=== PATIENT | male | born 1970 | race Caucasian/White ===

== ENCOUNTER 2018-05-11 12:20 | Inpatient (IN) | payer MEDICAID ==
[~2018-05-11] VITALS: Ht 176.5 cm; Wt 72.7 kg
[2018-05-11 13:46] LABS: BASOPHILS 0.3 % (0-2); EOSINOPHILS 0.4 % (0-7); HEMATOCRIT 37.6 % (42.0-54.0); HEMOGLOBIN 13.3 g/dL (13.5-17.5); IMMATURE GRANULOCYTES 0.3 % (0-5); LYMPHOCYTES 15.3 % (15-50); MCH 31.7 pg (26.0-34.0); MCHC 35.4 g/dL (31.0-37.0); MCV 89.5 fL (80.0-100.0); MEAN PLATELET VOLUME 8.9 fL (7.4-10.4); MONOCYTES 8.9 % (2-11); NEUTROPHILS 74.8 % (40-80); PLATELET COUNT 156 10x3/uL (130-400); RDW 14.1 % (11.5-14.5); WBC 11.4 10x3/uL (4.8-10.8)
[2018-05-11 14:04] LABS: ALBUMIN 3.4 g/dL (3.4-5.0); ALKALINE PHOSPHATASE 52 U/L (46-116); ALT (SGPT) 116 U/L (10-68); BILIRUBIN - TOTAL 0.46 mg/dL (0.2-1.3); CALC OSMOLALITY 269 mosm/kg (275-300); CALCIUM 9.3 mg/dL (8.5-10.1); CARBON DIOXIDE 27.6 mmol/L (21.0-32.0); CHLORIDE - SERUM 100 mmol/L (98-107); GLUCOSE 93 mg/dL (74-106); POTASSIUM - SERUM 3.7 mmol/L (3.5-5.1); PROTEIN - SERUM 7.5 g/dL (6.4-8.2); SODIUM 136 mmol/L (136-145); UREA NITROGEN 8 mg/dL (7-18); eGFR NON AFRICAN AMERICAN 84 mL/min (90-120)
[2018-05-11 14:44] LABS: APPEARANCE CLEAR (CLEAR); BILIRUBIN NEGATIVE (NEGATIVE); COLOR YELLOW (YELLOW); GLUCOSE NEGATIVE (NEGATIVE); KETONE NEGATIVE (NEGATIVE); NITRITE NEGATIVE (NEGATIVE); PROTEIN NEGATIVE (NEGATIVE); SPECIFIC GRAVITY 1.005 (1.005-1.020); UROBILINOGEN NORMAL (NORMAL)
[2018-05-11 17:45] VITALS: BP 115/69; BMI 23.3
[2018-05-11 18:32] VITALS: Ht 176.5 cm; Wt 72.7 kg
--- NOTE | 2018-05-11 19:00 | NUR ---
PATIENT LEFT FOR SURGERY PER BED. IV PATENT RT AC OF NS AT 125CC'S/HR.
[2018-05-11 20:39] VITALS: BP 111/66
--- NOTE | 2018-05-11 20:39 | NUR ---
PATIENT RETURNS TO ROOM FROM PACU POST OP SCROTAL ABSCESS I&D. DRSG C/D/I. PACKING NOTED WITH 4X4'S AND DISPOSIBLE UNDERWEAR ON. VS BEING MONITORED. PATIENT GIVEN A SANDWICH TRAY 80% CONSUMED PT'S AT BEDSIDE.
--- NOTE | 2018-05-11 22:00 | NUR ---
RESTING QUIETLY DENIES NEEDS.
--- NOTE | 2018-05-11 23:30 | NUR ---
VOIDED IN URINAL.
[2018-05-12] VITALS: BP 100/61
--- NOTE | 2018-05-12 00:32 | NUR ---
C/O PAIN IN HIS INCISIONAL AREA. MORPHINE 4MG IVPS GIVEN FOR PAIN CONTROL.
--- NOTE | 2018-05-12 03:00 | NUR ---
EYES CLOSED RESPIRAIONS WITH EASE AND UNLABORED.
[2018-05-12 05:38] VITALS: BP 121/61
[2018-05-12 06:24] LABS: BASOPHILS 0.2 % (0-2); EOSINOPHILS 0.8 % (0-7); HEMATOCRIT 35.6 % (42.0-54.0); HEMOGLOBIN 12.4 g/dL (13.5-17.5); IMMATURE GRANULOCYTES 0.2 % (0-5); LYMPHOCYTES 18.4 % (15-50); MCH 31.2 pg (26.0-34.0); MCHC 34.8 g/dL (31.0-37.0); MCV 89.7 fL (80.0-100.0); MEAN PLATELET VOLUME 9.7 fL (7.4-10.4); MONOCYTES 8.3 % (2-11); NEUTROPHILS 72.1 % (40-80); PLATELET COUNT 170 10x3/uL (130-400); RBC 3.97 10x6/uL (4.20-6.10); RDW 14.1 % (11.5-14.5); WBC 9.7 10x3/uL (4.8-10.8)
--- NOTE | 2018-05-12 06:35 | NUR ---
RESTING QUIETLY DENIES NEEDS. SR UP X2 CALL LIGHT WITHIN REACH.
[2018-05-12 06:45] LABS: ALKALINE PHOSPHATASE 50 U/L (46-116); ALT (SGPT) 88 U/L (10-68); BILIRUBIN - TOTAL 0.56 mg/dL (0.2-1.3); CALC OSMOLALITY 271 mosm/kg (275-300); CALCIUM 8.5 mg/dL (8.5-10.1); CARBON DIOXIDE 25.2 mmol/L (21.0-32.0); CHLORIDE - SERUM 102 mmol/L (98-107); GLUCOSE 103 mg/dL (74-106); POTASSIUM - SERUM 4.2 mmol/L (3.5-5.1); PROTEIN - SERUM 6.9 g/dL (6.4-8.2); SODIUM 137 mmol/L (136-145); UREA NITROGEN 8 mg/dL (7-18); eGFR NON AFRICAN AMERICAN 84 mL/min (90-120)
[2018-05-12 08:45] VITALS: BP 142/71
--- NOTE | 2018-05-12 08:46 | OP ---
PATIENT NAME: EDGARDO ESQUIVEL MEDICAL RECORD: [id number] :[birth year] LOCATION:D.MS [id number] ADMISSION DATE:05/11/18 SURGEON: SAVANNAH FUNES MD DATE OF OPERATION: 05/11/2018 SURGEON: Savannah Funes MD ANESTHESIA: General anesthesia by Marlo Arshad CRNA. DIAGNOSIS: Left scrotal abscess. PROCEDURE: Incision and drainage of scrotal abscess. FINDINGS: A 1 cm left medial thigh calcified scar. A 4 cm long x 2 cm wide left lateral scrotal abscess with copious foul-smelling pus. SPECIMENS: Wound culture swabs, aerobic and anaerobic. ESTIMATED BLOOD LOSS: None. CLINICAL HISTORY: This is a 48-year-old male who does not have diabetes mellitus. He is not on chemotherapy. He is not immunocompromised in any way. He shaves his scrotal hair for cosmetic reasons. A few days ago, he developed pain in the left hemiscrotum and has gotten increasingly more intense. Finally, he could not tolerate the pain and came to the Emergency Room today. A large scrotal abscess was found. The skin overlying the abscess is not necrotic. He does not have any fevers or other signs of Nelly's gangrene. He has been started on IV antibiotics in the Emergency Room. No further antibiotics were given to him. He will be getting an incision and drainage of the abscess tonight. DESCRIPTION OF PROCEDURE: The patient was given induction of general anesthesia in the supine position. His left leg was then frog legged out. The right leg was maintained in a straight position. When we abducted the left leg, we noticed a plaque in the medial thigh, which looked like an early abscess forming in the skin of the medial thigh. We prepped the scrotum, the penis, the peritoneum, and the left thigh. A small incision was then made about 1 cm long in the left thigh. No pus was seen. Instead, there seems to be an old calcified scar in this area. This incision was closed with 2 simple interrupted 4-0 Monocryl sutures. A Band-Aid was then placed over the incision. The blue towels were then placed over this medial thigh lesion to protect it from pus contamination. We then made a 2 cm long incision in the scrotal abscess. Immediately large quantities of foul-smelling pus was released. Culture swabs were obtained from the pus. The abscess cavity was irrigated out using normal saline. Half-inch iodoform packing was then placed into the abscess cavity. Fluffs and mesh panties were then placed on the patient. The iodoform packing will be changed on a daily basis. TRANSINT:[id number] Voice Confirmation ID: [id number] DOCUMENT ID: [id number] OPERATIVE REPORT [id number] EDGARDO ESQUIVEL, SAVANNAH Pierce MD at 0846 CC: [id number] DICTATION DATE: 05/11/182000 RESTAURANT SUPERVISOR: 05/11/18 2206 ADM IN [place] [id number] [place] [id number]
--- NOTE | 2018-05-12 11:06 | NUR ---
AFTER ASSESSING PT, PT HAS ANOTHER BOIL/ABSCESS ON BOTTOM OF RT SIDE OF SCROTUM WELL ONE ON UPPER BACK ON RT SIDE, REPACKED PT DRESSING, PT IS IN EXCRUCIATING PAIN AND WAS ADMINISTERED PRN PAIN MEDS AT 9. ADVISED PT I CAN GIVE MORE AT 1. SIGNIFICANTOTHER AT BEDSIDE, CONTINUE WITH PLAN OF CARE
--- NOTE | 2018-05-12 11:51 | MORECARE ---
CASE MANAGEMENT DISCHARGE SUMMARY PATIENT: EDGARDO ESQUIVEL UNIT: [id number] ADM DATE: 05/11/18 AGE: 48 : [birth year] SEX: M ROOM/BED: D.2225 AUTHOR: JESSICA DENNIS PHYSICIAN: REFERRING PHYSICIAN: JULISSA DIXON MD DATE OF SERVICE: 05/12/18 Discharge Plan Patient Name: EDGARDO ESQUIVEL [facility] [facility] 1970 Planned Disposition: Home Anticipated Discharge Date: Discharge Date: Expected LOS: Initial Reviewer: [email or web address] Initial Review Date: 05/12/2018 Generated: 05/12/18 12:50 pm DCPIA - Discharge Planning Initial Assessment Updated by [email or web address]: Jessika Frank on 05/12/18 11:49 am * Is the patient Alert and Oriented? Yes * How many steps to enter\exit or inside your home? 2-3/0 * PCP None * Pharmacy [facility] * Preadmission Environment Home with Family * ADLs Independent * Equipment None * List name and contact numbers for known caregivers / representatives who currently or will assist patient after discharge: Salome Bharti arias? - [phone] * Verbal permission to speak to the caregivers and representatives has been obtained from the patient. Yes * Community resources currently utilized None * Additional services required to return to the preadmission environment? No * Can the patient safely return to the preadmission environment? Yes * Has this patient been hospitalized within the prior 30 days at any hospital? No Patient Name: EDGARDO ESQUIVEL Page 92265 at 1151 All edits/amendments must be made on the electronic document DICTATION DATE: 05/12/18 1150 GROUP DIRECTOR EXPERIENCE: DANIEL 05/12/18 1150 RPT#: [id number] DC DATE: STATUS: ADM IN [facility] [address] [place] [address] END OF REPORT
--- NOTE | 2018-05-12 11:58 | MORECARE ---
CASE MANAGEMENT DISCHARGE SUMMARY PATIENT: EDGARDO ESQUIVEL UNIT: [id number] ADM DATE: 05/11/18 AGE: 48 : [birth year] SEX: M ROOM/BED: D.2225 AUTHOR: SONNY,DOC PHYSICIAN: REFERRING PHYSICIAN: JULISSA DIXON MD DATE OF SERVICE: 05/12/18 Discharge Plan Patient Name: EDGARDO ESQUIVEL Facility: [facility]:[place] : 1970 Planned Disposition: Home Anticipated Discharge Date: Discharge Date: Expected LOS: Initial Reviewer: [email or web address] Initial Review Date: 05/12/2018 Generated: 05/12/18 12:58 pm Comments DCP- Discharge Planning Updated by [email or web address]: Jessika Frank on 05/12/18 10:[address] Patient Name: EDGARDO ESQUIVEL Admission Status: ER Accout number: [id number] Admission Date: 05-11-2018 : 1970 Admission Diagnosis: Attending: JULISSA DIXON Current LOS: 1 Anticipated DC Date: Planned Disposition: Home Primary Insurance: MEDICAID [place] PENDING Discharge Planning Comments: CM met with patient to discuss discharge planning, he is alone in the room. States he lives with his son and fianc?e. States he is independent with all ADL's and IADL's. He does not have any DME and states he does not need anything. He does not have any outside community resources assisting in the home. Denies needs at this time. If he needs dressing changes or wound care he may need to have fianc?e assist if able since he is currently uninsured (Medicaid pending). CM will continue to follow and assist with discharge planning/needs. Tailor Men'S Ready To Wear: Jessika Frank DCPIA - Discharge Planning Initial Assessment Updated by [email or web address]: Jessika Frank on 05/12/18 11:49 am * Is the patient Alert and Oriented? Yes * How many steps to enter\exit or inside your home? 2-3/0 * PCP None * Pharmacy [facility] [address] * Preadmission Environment Home with Family * ADLs Independent * Equipment None * List name and contact numbers for known caregivers / representatives who currently or will assist patient after discharge: Salome - fianc? - [phone] * Verbal permission to speak to the caregivers and representatives has been obtained from the patient. Yes * Community resources currently utilized None * Additional services required to return to the preadmission environment? No * Can the patient safely return to the preadmission environment? Yes * Has this patient been hospitalized within the prior 30 days at any hospital? No Last DP export: 05/12/18 10:50 am Patient Name: EDGARDO ESQUIVEL Page 65681 at 1158 All edits/amendments must be made on the electronic document DICTATION DATE: 05/12/18 1158 ASSISTANT STRENGTH COACH: DANIEL 05/12/18 1158 RPT#: [id number] DC DATE: STATUS: ADM IN [facility] [address] [place] [address] END OF REPORT
[2018-05-12 12:45] VITALS: BP 117/70
--- NOTE | 2018-05-12 15:52 | NUR ---
LYING IN BED,WITHOUT DISTRESS.
[2018-05-12 16:37] VITALS: BP 137/83
[2018-05-12 20:00] VITALS: BP 101/57
--- NOTE | 2018-05-12 20:00 | NUR ---
ASSESSMENT PER FLOWSHEET. DRESSING TO SCROTAL AREA C/D/I. IV SALINE LOCKED TO RT AC. UP AD JONI IN HALLS WITH HIS . BOIL NOTED TO LEFT SCAPULA. AND UNDER RT SCROTUM.
--- NOTE | 2018-05-12 21:32 | NUR ---
C/O PAIN INCISIONAL AREA. NORCO 5 TAB ONE PO GIVEN FOR PAIN CONTROL.
[2018-05-13] VITALS: BP 113/52
--- NOTE | 2018-05-13 | NUR ---
RESTING IN BED SR UP X2 CALL LIGHT WITHIN REACH VOIDS WELL IN URINAL.
--- NOTE | 2018-05-13 02:00 | NUR ---
EYES CLOSED RESPIRATIONS WITH EASE AND UNLABORED.
[2018-05-13 04:00] VITALS: BP 114/73
--- NOTE | 2018-05-13 04:20 | NUR ---
RESTING QUIETLY DENIES NEEDS.
--- NOTE | 2018-05-13 08:20 | NUR ---
PT AOX4 RESP EVEN AND NONLABORED PT DENIES NEEDS AT THIS TIME IV TO RIGHT AC PATENT AND INTACT AT THIS TIME SRX2 BED AT LOWEST SETTING CALL LIGHT WITHIN REACH WILL CONTINUE TO MONITOR
[2018-05-13 08:45] VITALS: BP 112/61
--- NOTE | 2018-05-13 12:04 | MORECARE ---
CASE MANAGEMENT DISCHARGE SUMMARY PATIENT: EDGARDO ESQUIVEL UNIT: [id number] ADM DATE: 05/11/18 AGE: 48 : [birth year] SEX: M ROOM/BED: D.2225 AUTHOR: SONNY,DOC PHYSICIAN: REFERRING PHYSICIAN: JULISSA DIXON MD DATE OF SERVICE: 05/13/18 Discharge Plan Patient Name: EDGARDO ESQUIVEL Facility: [facility]:[place] : 1970 Planned Disposition: Home Anticipated Discharge Date: Discharge Date: Expected LOS: Initial Reviewer: [email or web address] Initial Review Date: 05/12/2018 Generated: 05/13/18 1:04 pm Comments DCP- Discharge Planning Updated by [email or web address]: Jessika Frank on 05/13/18 11:[address] Spoke with Roxy at Dr. Kirby's office,. She states she is not in the office every day to schedule daily dressing changes. States ok for family to pack. I went to the patient's room and his fianc? is in the room. I gave them option of walk in clinic or hospital daily for wound packing. Jorge Luis states that if someone would show her, she could do the daily packing prior to going to work and patient agrees. I will talk to his nurse Dasha about instructing the fianc?e on wound packing. Anticipate discharge home today. DCP- Discharge Planning Updated by [email or web address]: Jessika Frank on 05/12/18 10:[address] Patient Name: EDGARDO ESQUIVEL Admission Status: ER Accout number: [id number] Admission Date: 05-11-2018 : 1970 Admission Diagnosis: Attending: JULISSA DIXON Current LOS: 1 Anticipated DC Date: Planned Disposition: Home Primary Insurance: MEDICAID [place] PENDING Discharge Planning Comments: CM met with patient to discuss discharge planning, he is alone in the room. States he lives with his son and fianc?e. States he is independent with all ADL's and IADL's. He does not have any DME and states he does not need anything. He does not have any outside community resources assisting in the home. Denies needs at this time. If he needs dressing changes or wound care he may need to have fianc?e assist if able since he is currently uninsured (Medicaid pending). CM will continue to follow and assist with discharge planning/needs. Field Service Rep: Jessika Frank DCPIA - Discharge Planning Initial Assessment Updated by [email or web address]: Jessika Monika on 05/12/18 11:49 am * Is the patient Alert and Oriented? Yes * How many steps to enter\exit or inside your home? 2-3/0 * PCP None * Pharmacy [facility] [address] * Preadmission Environment Home with Family * ADLs Independent * Equipment None * List name and contact numbers for known caregivers / representatives who currently or will assist patient after discharge: Salome - fidiego? - [phone] * Verbal permission to speak to the caregivers and representatives has been obtained from the patient. Yes * Community resources currently utilized None * Additional services required to return to the preadmission environment? No * Can the patient safely return to the preadmission environment? Yes * Has this patient been hospitalized within the prior 30 days at any hospital? No Last DP export: 05/12/18 10:58 am Patient Name: EDGARDO ESQUIVEL Page 25788 at 1204 All edits/amendments must be made on the electronic document DICTATION DATE: 05/13/181203 CRANE MAN: DANIEL 05/13/181203 RPT#: [id number] DC DATE: STATUS: ADM IN [facility] [address] [place] [address] END OF REPORT
[2018-05-13 12:45] VITALS: BP 113/56
[2018-05-13] MEDS ORDERED: NORCO 7.5/325 T1 TA1 PO (15:01)
[2018-05-13] MEDS ORDERED: CLEOCIN HCL300 MG PO (15:01)
[2018-05-13] MEDS ORDERED: MIRALAX17 GM PO (15:01)
[2018-05-13] MEDS ORDERED: BACTROBAN NASAL1 GM NASAL (15:11)
--- NOTE | 2018-05-13 15:26 | MORECARE ---
CASE MANAGEMENT DISCHARGE SUMMARY PATIENT: EDGARDO ESQUIVEL UNIT: [id number] ADM DATE: 05/11/18 AGE: 48 : [birth year] SEX: M ROOM/BED: D.2225 AUTHOR: SONNYDOC PHYSICIAN: REFERRING PHYSICIAN: JULISSA DIXON MD DATE OF SERVICE: 05/13/18 Discharge Plan Patient Name: EDGARDO ESQUIVEL Facility: [facility]:[place] : 1970 Planned Disposition: Home Anticipated Discharge Date: Discharge Date: Expected LOS: Initial Reviewer: [email or web address] Initial Review Date: 05/12/2018 Generated: 05/13/18 4:26 pm Comments DCP- Discharge Planning Updated by [email or web address]: Jessika Frank on 05/13/18 2:[address] Discharge orders received. Martha is going to pack his wound prior to shower every morning. No other needs. Discharging to home. DCP- Discharge Planning Updated by [email or web address]: Jessika Monika on 05/13/18 11:[address] Spoke with Roxy at Dr. Kirby's office,. She states she is not in the office every day to schedule daily dressing changes. States ok for family to pack. I went to the patient's room and his fianc? is in the room. I gave them option of walk in clinic or hospital daily for wound packing. Jorge Luis states that if someone would show her, she could do the daily packing prior to going to work and patient agrees. I will talk to his nurse Dasha about instructing the fianc?e on wound packing. Anticipate discharge home today. DCP- Discharge Planning Updated by [email or web address]: Jessika Farnk on 05/12/18 10:[address] Patient Name: EDGARDO ESQUIVEL Admission Status: ER Accout number: [id number] Admission Date: 05-11-2018 : 1970 Admission Diagnosis: Attending: JULISSA DIXON Current LOS: 1 Anticipated DC Date: Planned Disposition: Home Primary Insurance: MEDICAID [place] PENDING Discharge Planning Comments: CM met with patient to discuss discharge planning, he is alone in the room. States he lives with his son and fianc?e. States he is independent with all ADL's and IADL's. He does not have any DME and states he does not need anything. He does not have any outside community resources assisting in the home. Denies needs at this time. If he needs dressing changes or wound care he may need to have fianc?e assist if able since he is currently uninsured (Medicaid pending). CM will continue to follow and assist with discharge planning/needs. Terminal Supervisor: Jessika Frank DCPIA - Discharge Planning Initial Assessment Updated by [email or web address]: Jessika Frank on 05/12/18 11:49 am * Is the patient Alert and Oriented? Yes * How many steps to enter\exit or inside your home? 2-3/0 * PCP None * Pharmacy [facility] [address] * Preadmission Environment Home with Family * ADLs Independent * Equipment None * List name and contact numbers for known caregivers / representatives who currently or will assist patient after discharge: Salome - juana? - [phone] * Verbal permission to speak to the caregivers and representatives has been obtained from the patient. Yes * Community resources currently utilized None * Additional services required to return to the preadmission environment? No * Can the patient safely return to the preadmission environment? Yes * Has this patient been hospitalized within the prior 30 days at any hospital? No Last DP export: 05/13/18 11:04 am Patient Name: EDGARDO ESQUIVEL Page 26609 at 1526 All edits/amendments must be made on the electronic document DICTATION DATE: 05/13/181524 ALGEBRAIST: DANIEL 05/13/181524 RPT#: [id number] DC DATE: STATUS: ADM IN [facility] [address] [place] [address] END OF REPORT
--- NOTE | 2018-05-13 16:54 | NUR ---
IV DISCONTINUED WITH CATHETER INTACT AT THIS TIME PT HANDED ONE PAIN SCRIPT FOR NORCO 7.5 AT THIS TIME PT TAKEN VIA WHEELCHAIR VIA PRIVATE VEHICLE AT THIS TIME
--- NOTE | 2018-05-17 07:15 | MORECARE ---
CASE MANAGEMENT DISCHARGE SUMMARY PATIENT: EDGARDO ESQUIVEL UNIT: [id number] ADM DATE: 05/11/18 AGE: 48 : 68 SEX: M ROOM/BED: D.2225 AUTHOR: SONNYDOC PHYSICIAN: REFERRING PHYSICIAN: JULISSA DIXON MD DATE OF SERVICE: 05/17/18 Discharge Plan Patient Name: EDGARDO ESQUIVEL Facility: [facility]:[place] : 1970 Planned Disposition: Home Anticipated Discharge Date: Discharge Date: 05/13/2018 Expected LOS: 0 Initial Reviewer: [email or web address] Initial Review Date: 05/12/2018 Generated: 05/17/18 8:15 am Comments DCP- Discharge Planning Updated by [email or web address]: Jessika Frank on 05/13/18 2:[address] Discharge orders received. Martha is going to pack his wound prior to shower every morning. No other needs. Discharging to home. DCP- Discharge Planning Updated by [email or web address]: Jessika Frank on 05/13/18 11:[address] Spoke with Roxy at Dr. Kirby's office,. She states she is not in the office every day to schedule daily dressing changes. States ok for family to pack. I went to the patient's room and his fianc? is in the room. I gave them option of walk in clinic or hospital daily for wound packing. Jorge Luis states that if someone would show her, she could do the daily packing prior to going to work and patient agrees. I will talk to his nurse Dasha about instructing the fianc?e on wound packing. Anticipate discharge home today. DCP- Discharge Planning Updated by [email or web address]: Jessika Frank on 05/12/18 10:[address] Patient Name: EDGARDO ESQUIVEL Admission Status: ER Accout number: [id number] Admission Date: 05-11-2018 : 1970 Admission Diagnosis: Attending: JULISSA DIXON Current LOS: 1 Anticipated DC Date: Planned Disposition: Home Primary Insurance: MEDICAID [place] PENDING Discharge Planning Comments: CM met with patient to discuss discharge planning, he is alone in the room. States he lives with his son and fianc?e. States he is independent with all ADL's and IADL's. He does not have any DME and states he does not need anything. He does not have any outside community resources assisting in the home. Denies needs at this time. If he needs dressing changes or wound care he may need to have fianc?e assist if able since he is currently uninsured (Medicaid pending). CM will continue to follow and assist with discharge planning/needs. Kennel Assistant: Jessika Frank DCPIA - Discharge Planning Initial Assessment Updated by [email or web address]: Jessika Frank on 05/12/18 11:49 am * Is the patient Alert and Oriented? Yes * How many steps to enter\exit or inside your home? 2-3/0 * PCP None * Pharmacy [facility] on [facility] * Preadmission Environment Home with Family * ADLs Independent * Equipment None * List name and contact numbers for known caregivers / representatives who currently or will assist patient after discharge: Salome - juana? - [phone] * Verbal permission to speak to the caregivers and representatives has been obtained from the patient. Yes * Community resources currently utilized None * Additional services required to return to the preadmission environment? No * Can the patient safely return to the preadmission environment? Yes * Has this patient been hospitalized within the prior 30 days at any hospital? No Last DP export: 05/13/18 2:26 pm Patient Name: EDGARDO ESQUIVEL Page [id number] at 0715 All edits/amendments must be made on the electronic document DICTATION DATE: 05/17/18714 HEARING STENOGRAPHER: DANIEL 05/17/18714 RPT#: [id number] DC DATE:05/13/18 STATUS: DIS IN [facility] [address] [facility] [place] [address] END OF REPORT
== END 2018-05-13 16:56 | disposition home or self-care (01) | DRG 728 ==
LOC: D.ER 12:20 → D.EDHOLD 16:15 → D.MS 16:15
PROVIDERS: Family Medicine; Urology; ADMIT Internal Medicine Nephrology
PROC: 0V95XZZ Drainage of Scrotum, External Approach (ICD-10-PCS; principal; 2018-05-11 19:00)
DX: N49.2 Inflammatory disorders of scrotum (principal); K21.9 Gastro-esophageal reflux disease without esophagitis; Z87.891 Personal history of nicotine dependence

== ENCOUNTER 2018-12-25 08:56 | Emergency (ER) | payer OTHER ==
[~2018-12-25] VITALS: Ht 176.5 cm; Wt 74.8 kg
[~2018-12-25 08:56] MED LIST: BACTROBAN NASAL1 GM NASAL; CLEOCIN HCL300 MG PO; MIRALAX17 GM PO; NORCO 7.5/325 T1 TA1 PO
[2018-12-25 08:57] VITALS: Ht 176.5 cm; Wt 74.8 kg
[2018-12-25 09:28] LABS: ALBUMIN 3.3 g/dL (3.4-5.0); ALKALINE PHOSPHATASE 38 U/L (46-116); ALT (SGPT) 53 U/L (10-68); BILIRUBIN - TOTAL 0.38 mg/dL (0.2-1.3); CALCIUM 8.4 mg/dL (8.5-10.1); CARBON DIOXIDE 23.1 mmol/L (21.0-32.0); CHLORIDE - SERUM 107 mmol/L (98-107); CREATININE - SERUM 1.2 mg/dL (0.6-1.3); POTASSIUM - SERUM 3.6 mmol/L (3.5-5.1); PROTEIN - SERUM 6.1 g/dL (6.4-8.2); SODIUM 141 mmol/L (136-145); UREA NITROGEN 13 mg/dL (7-18); eGFR NON AFRICAN AMERICAN 68 mL/min (90-120)
[2018-12-25 09:32] LABS: AMYLASE - SERUM 53 U/L (25-115); LIPASE 71 U/L (73-393)
[2018-12-25 09:34] LABS: CALC OSMOLALITY 284 mosm/kg (275-300); GLUCOSE 162 mg/dL (74-106); TROPONIN-I < 0.017 ng/mL (0.000-0.060)
[2018-12-25 09:41] LABS: UDS - AMPHET NEGATIVE QUAL (NEGATIVE); UDS - BARB NEGATIVE QUAL (NEGATIVE); UDS - BENZO NEGATIVE QUAL (NEGATIVE); UDS - COCAINE NEGATIVE QUAL (NEGATIVE); UDS - OPIATE NEGATIVE QUAL (NEGATIVE); UDS - PCP NEGATIVE QUAL (NEGATIVE); UDS - THC POSITIVE QUAL (NEGATIVE)
[2018-12-25 09:43] LABS: APPEARANCE CLEAR (CLEAR); COLOR YELLOW (YELLOW); GLUCOSE 50 mg/dL (NEGATIVE); NITRITE NEGATIVE (NEGATIVE); PROTEIN NEGATIVE (NEGATIVE); SPECIFIC GRAVITY 1.005 (1.005-1.020)
[2018-12-25 09:44] LABS: BILIRUBIN NEGATIVE (NEGATIVE); KETONE SMALL mg/dL (NEGATIVE); UROBILINOGEN NORMAL (NORMAL)
[2018-12-25 09:49] LABS: BASOPHILS 0.1 % (0-2); EOSINOPHILS 0.3 % (0-7); HEMATOCRIT 38.3 % (42.0-54.0); HEMOGLOBIN 13.8 g/dL (13.5-17.5); IMMATURE GRANULOCYTES 0.1 % (0-5); LYMPHOCYTES 22.5 % (15-50); MCH 31.2 pg (26.0-34.0); MCV 86.7 fL (80.0-100.0); MEAN PLATELET VOLUME 9.7 fL (7.4-10.4); MONOCYTES 6.7 % (2-11); NEUTROPHILS 70.3 % (40-80); PLATELET COUNT 142 10x3/uL (130-400); RBC 4.42 10x6/uL (4.20-6.10); WBC 7.5 10x3/uL (4.8-10.8)
[2018-12-25] MEDS ORDERED: PROTONIX40 MG PO (11:02)
[2018-12-25] MEDS ORDERED: CARAFATE1 G PO (11:02)
[2018-12-25 11:16] VITALS: BP 123/60
== END 2018-12-25 11:17 | disposition home or self-care (01) ==
LOC: D.ER 08:56
PROVIDERS: Family Medicine
DX: K29.70 Gastritis, unspecified, without bleeding (principal)

== ENCOUNTER 2018-12-28 22:20 | Emergency (ER) | payer OTHER ==
[~2018-12-28] VITALS: Ht 176.5 cm; Wt 72.7 kg
[~2018-12-28 22:20] MED LIST changes: +CARAFATE1 G PO; +PROTONIX40 MG PO
[2018-12-28 22:27] VITALS: Ht 176.5 cm; Wt 72.7 kg
[2018-12-28] MEDS ORDERED: ULTRAM50 MG PO (22:28)
[2018-12-28 22:50] LABS: BASOPHILS 0.2 % (0-2); EOSINOPHILS 0.2 % (0-7); HEMOGLOBIN 14.7 g/dL (13.5-17.5); IMMATURE GRANULOCYTES 0.1 % (0-5); LYMPHOCYTES 20.5 % (15-50); MCH 31.6 pg (26.0-34.0); MCHC 36.8 g/dL (31.0-37.0); MEAN PLATELET VOLUME 9.4 fL (7.4-10.4); MONOCYTES 6.5 % (2-11); NEUTROPHILS 72.5 % (40-80); PLATELET COUNT 153 10x3/uL (130-400); RBC 4.65 10x6/uL (4.20-6.10); RDW 13.6 % (11.5-14.5); WBC 9.1 10x3/uL (4.8-10.8)
[2018-12-28 23:03] LABS: ALBUMIN 3.4 g/dL (3.4-5.0); ALKALINE PHOSPHATASE 41 U/L (46-116); ALT (SGPT) 52 U/L (10-68); BILIRUBIN - TOTAL 0.51 mg/dL (0.2-1.3); CALC OSMOLALITY 275 mosm/kg (275-300); CALCIUM 8.3 mg/dL (8.5-10.1); CARBON DIOXIDE 23.6 mmol/L (21.0-32.0); CHLORIDE - SERUM 102 mmol/L (98-107); CREATININE - SERUM 1.4 mg/dL (0.6-1.3); GLUCOSE 136 mg/dL (74-106); POTASSIUM - SERUM 3.1 mmol/L (3.5-5.1); PROTEIN - SERUM 6.3 g/dL (6.4-8.2); SODIUM 137 mmol/L (136-145); UREA NITROGEN 13 mg/dL (7-18); eGFR NON AFRICAN AMERICAN 57 mL/min (90-120)
[2018-12-28 23:06] LABS: AMYLASE - SERUM 55 U/L (25-115); LIPASE 62 U/L (73-393); TROPONIN-I < 0.017 ng/mL (0.000-0.060)
[2018-12-29] MEDS ORDERED: CARAFATE1 G PO (00:10)
[2018-12-29] MEDS ORDERED: PHENERGAN25 M1 PO (00:10)
[2018-12-29] MEDS ORDERED: BENTYL 20 MG TA20 MG PO (00:10)
[2018-12-29 00:14] LABS: APPEARANCE CLEAR (CLEAR); BILIRUBIN NEGATIVE (NEGATIVE); COLOR YELLOW (YELLOW); GLUCOSE NEGATIVE (NEGATIVE); KETONE MODERATE mg/dL (NEGATIVE); NITRITE NEGATIVE (NEGATIVE); PROTEIN NEGATIVE (NEGATIVE); UROBILINOGEN NORMAL (NORMAL)
[2018-12-29 00:30] VITALS: BP 155/93
== END 2018-12-29 00:30 | disposition home or self-care (01) ==
LOC: D.ER 22:20
PROVIDERS: Emergency Medicine
DX: K29.70 Gastritis, unspecified, without bleeding (principal); R11.2 Nausea with vomiting, unspecified

== ENCOUNTER 2019-05-04 08:23 | Observation (INO) | payer OTHER ==
[~2019-05-04] VITALS: Ht 176.5 cm; Wt 77.3 kg
[~2019-05-04 08:23] MED LIST changes: +BENTYL 20 MG TA20 MG PO; +PHENERGAN25 M1 PO; +ULTRAM50 MG PO
[2019-05-04] MEDS ORDERED: ACID REFLUX MED (08:34)
[2019-05-04 08:59] LABS: BASOPHILS 0.3 % (0-2); EOSINOPHILS 0.3 % (0-7); HEMATOCRIT 40.6 % (42.0-54.0); HEMOGLOBIN 14.4 g/dL (13.5-17.5); IMMATURE GRANULOCYTES 0.3 % (0-5); MCH 31.2 pg (26.0-34.0); MCHC 35.5 g/dL (31.0-37.0); MCV 87.9 fL (80.0-100.0); MEAN PLATELET VOLUME 9.9 fL (7.4-10.4); MONOCYTES 6.5 % (2-11); NEUTROPHILS 59.6 % (40-80); PLATELET COUNT 160 10x3/uL (130-400); RBC 4.62 10x6/uL (4.20-6.10); WBC 7.2 10x3/uL (4.8-10.8)
[2019-05-04 09:16] LABS: ALBUMIN 4.3 g/dL (3.4-5.0); ALKALINE PHOSPHATASE 47 U/L (46-116); ALT (SGPT) 28 U/L (10-68); AMYLASE - SERUM 54 U/L (25-115); BILIRUBIN - TOTAL 0.56 mg/dL (0.2-1.3); CALC OSMOLALITY 278 mosm/kg (275-300); CALCIUM 9.4 mg/dL (8.5-10.1); CARBON DIOXIDE 26.3 mmol/L (21.0-32.0); CHLORIDE - SERUM 101 mmol/L (98-107); CREATININE - SERUM 1.3 mg/dL (0.6-1.3); GLUCOSE 128 mg/dL (74-106); LIPASE 70 U/L (73-393); PROTEIN - SERUM 7.8 g/dL (6.4-8.2); SODIUM 138 mmol/L (136-145); UREA NITROGEN 14 mg/dL (7-18); eGFR NON AFRICAN AMERICAN 62 mL/min (90-120)
[2019-05-04 09:18] LABS: C-REACTIVE PROTEIN < 0.9 mg/dL (0.0-0.9); POTASSIUM - SERUM 2.9 mmol/L (3.5-5.1); TROPONIN-I < 0.017 ng/mL (0.000-0.060)
[2019-05-04 09:43] LABS: APPEARANCE CLEAR (CLEAR); BILIRUBIN NEGATIVE (NEGATIVE); COLOR YELLOW (YELLOW); GLUCOSE NEGATIVE (NEGATIVE); KETONE SMALL mg/dL (NEGATIVE); NITRITE NEGATIVE (NEGATIVE); PROTEIN NEGATIVE (NEGATIVE); SPECIFIC GRAVITY 1.015 (1.005-1.020); UROBILINOGEN NORMAL (NORMAL)
[2019-05-04 12:03] VITALS: BP 166/87
[2019-05-04 14:43] VITALS: BP 158/79; Ht 176.5 cm; Wt 77.3 kg
--- NOTE | 2019-05-04 14:52 | NUR ---
PATIENT ADMITTED TO ROOM 222. ADMISSION COMPLETE. EDUCATION PROVIDED ON NEED FOR STOOL SAMPLE AND HAT IN TOILET. 10MEQ KCL RIDERS X 6 SCANNED AND FIRST BAG STARTED PER PROTOCOL. NS RUNNING AT 100 PER ORDER. PRN ZOFRAN GIVEN. BID WRITER IN ROOM STATES START ZOFRAN DRIP AT 4.7 IF N/V CONTINUES. BED LOW. CALL LE AND PERSONAL ITEMS IN REACH. WILL CONTINUE TO MONITOR.
--- NOTE | 2019-05-04 15:15 | NUR ---
NEW IV STARTED TO RIGHT WRIST FOR ABX PER ORDER.
--- NOTE | 2019-05-04 16:16 | NUR ---
PATIENT SLEEPING. WILL CONTINUE TO MONITOR.
--- NOTE | 2019-05-04 19:00 | NUR ---
BEDSIDE REPORT RECEIVED AND CARE OF PT ASSUMED. PT LYING IN SUPINE POSITION WITH EYES CLOSED. IV TO RIGHT AC PATENT WITH LR INFUSING AT 50 ML/HR. TELEMETRY IN USE AND READING SR AT THIS TIME. WILL MONITOR FOR NEEDS.
[2019-05-04 19:30] VITALS: BP 118/63
--- NOTE | 2019-05-04 20:39 | NUR ---
HS MEDICATIONS GIVEN TO INCLUDE PRN ZOFRAN IVP FOR NAUSEA.
--- NOTE | 2019-05-04 21:20 | NUR ---
DEMERAL IVP GIVEN PER REQUEST FOR PAIN. WILL MONITOR FOR EFFECTIVENESS.
[2019-05-05 00:30] VITALS: BP 121/70
[2019-05-05 05:00] VITALS: BP 109/63
[2019-05-05 06:14] LABS: BASOPHILS 0.2 % (0-2); EOSINOPHILS 0.4 % (0-7); HEMATOCRIT 38.3 % (42.0-54.0); HEMOGLOBIN 13.1 g/dL (13.5-17.5); IMMATURE GRANULOCYTES 0.2 % (0-5); LYMPHOCYTES 46.6 % (15-50); MCH 30.5 pg (26.0-34.0); MCHC 34.2 g/dL (31.0-37.0); MCV 89.1 fL (80.0-100.0); MEAN PLATELET VOLUME 10.1 fL (7.4-10.4); MONOCYTES 7.7 % (2-11); NEUTROPHILS 44.9 % (40-80); PLATELET COUNT 149 10x3/uL (130-400); RDW 13.1 % (11.5-14.5)
[2019-05-05 06:32] LABS: WBC 5.3 10x3/uL (4.8-10.8)
[2019-05-05 06:41] LABS: ALBUMIN 3.3 g/dL (3.4-5.0); ALKALINE PHOSPHATASE 36 U/L (46-116); ALT (SGPT) 24 U/L (10-68); BILIRUBIN - TOTAL 0.61 mg/dL (0.2-1.3); CALCIUM 8.2 mg/dL (8.5-10.1); CARBON DIOXIDE 26.9 mmol/L (21.0-32.0); CHLORIDE - SERUM 105 mmol/L (98-107); GLUCOSE 87 mg/dL (74-106); PROTEIN - SERUM 6.1 g/dL (6.4-8.2); SODIUM 140 mmol/L (136-145); eGFR NON AFRICAN AMERICAN 84 mL/min (90-120)
[2019-05-05 06:43] LABS: CALC OSMOLALITY 275 mosm/kg (275-300); MAGNESIUM - SERUM 2.1 mg/dL (1.8-2.4); POTASSIUM - SERUM 3.9 mmol/L (3.5-5.1); UREA NITROGEN 8 mg/dL (7-18)
--- NOTE | 2019-05-05 08:30 | NUR ---
PATIENT IN BED WITH IV INTACT X 2. NO COMPLAINTS OR SIGNS OF DISTRESS. FAMILY AT BEDSIDE. CALL LIGHT WITHIN REACH.
[2019-05-05 09:03] VITALS: BP 106/69
--- NOTE | 2019-05-05 10:00 | NUR ---
PATIENT PLACED ON DROPLETS AT THIS TIME. FLU SWABBED COMPLETED AND TAKEN TO LAB.
[2019-05-05] MEDS ORDERED: ZANAFLEX4 MG PO ×2 (11:38→11:49)
[2019-05-05] MEDS ORDERED: PROTONIX40 MG PO (11:51)
[2019-05-05] MEDS ORDERED: FLORAJEN3 CAPS460 MG PO (11:51)
[2019-05-05 12:10] VITALS: BP 122/68
--- NOTE | 2019-05-05 12:30 | NUR ---
PATIENT IV REMOVED X 2 WITH CATH TIP INTACT. PATIENT BEING DC'D.
--- NOTE | 2019-05-05 13:22 | NUR ---
PATIENT RECIEVED DC INSTRUCTIONS. VERBALIZED UNDERSTANDING. NO QUESTIONS AT THIS TIME. EXPLAINED TO BRASS INSTRUMENT REPAIR TECHNICIAN MEDS AT [facility] ON [address]. VERBALIZED UNDERSTANDING. AMBULATED OUT OF HOSPITAL WITH FAMILY. REFUSED WC AT THIS TIME. TOOK PERSONAL BELONGINGS.
== END 2019-05-05 13:33 | disposition home or self-care (01) ==
LOC: D.ER 08:23 → D.MS 11:53 → OBSVTIME 12:21 → D.MS 05-05 13:33
PROVIDERS: Family Medicine; ADMIT Internal Medicine Nephrology; ATTEND Internal Medicine Nephrology
DX: K52.9 Noninfective gastroenteritis and colitis, unspecified (principal); R11.2 Nausea with vomiting, unspecified; E86.0 Dehydration; D64.9 Anemia, unspecified; R73.9 Hyperglycemia, unspecified; K21.9 Gastro-esophageal reflux disease without esophagitis; K31.84 Gastroparesis

== ENCOUNTER 2019-09-02 09:48 | Emergency (ER) | payer SELFPAY ==
[~2019-09-02 09:48] MED LIST changes: +ACID REFLUX MED; +FLORAJEN3 CAPS460 MG PO; +ZANAFLEX4 MG PO
[2019-09-02 10:13] VITALS: Ht 176.5 cm
[2019-09-02 10:49] LABS: BASOPHILS 0.1 % (0-2); EOSINOPHILS 0.3 % (0-7); HEMATOCRIT 43.2 % (42.0-54.0); HEMOGLOBIN 14.9 g/dL (13.5-17.5); IMMATURE GRANULOCYTES 0.3 % (0-5); LYMPHOCYTES 33.5 % (15-50); MCHC 34.5 g/dL (31.0-37.0); MEAN PLATELET VOLUME 9.8 fL (7.4-10.4); MONOCYTES 7.4 % (2-11); NEUTROPHILS 58.4 % (40-80); PLATELET COUNT 161 10x3/uL (130-400); RDW 13.9 % (11.5-14.5); WBC 7.8 10x3/uL (4.8-10.8)
[2019-09-02 10:55] LABS: ANION GAP 15.5 mmol/L (8-16); CALCIUM 9.5 mg/dL (8.5-10.1); CARBON DIOXIDE 23.7 mmol/L (21.0-32.0); CREATININE - SERUM 1.3 mg/dL (0.6-1.3); POTASSIUM - SERUM 3.2 mmol/L (3.5-5.1)
[2019-09-02 11:01] LABS: ALBUMIN 4.4 g/dL (3.4-5.0); BILIRUBIN - TOTAL 0.65 mg/dL (0.2-1.3); PROTEIN - SERUM 8.2 g/dL (6.4-8.2)
[2019-09-02 12:18] LABS: BILIRUBIN NEGATIVE (NEGATIVE); GLUCOSE NEGATIVE (NEGATIVE); KETONE NEGATIVE (NEGATIVE); NITRITE NEGATIVE (NEGATIVE); UROBILINOGEN NORMAL (NORMAL)
[2019-09-02] MEDS ORDERED: OMEPRAZOLE40 MG PO (13:02)
[2019-09-02] MEDS ORDERED: ZOFRAN ODT4 MG/UDTAB PO (13:03)
[2019-09-02 13:25] VITALS: BP 159/79
== END 2019-09-02 13:25 | disposition home or self-care (01) ==
LOC: D.ER 09:48
PROVIDERS: Emergency Medicine
DX: R11.10 Vomiting, unspecified (principal); K29.70 Gastritis, unspecified, without bleeding; K21.9 Gastro-esophageal reflux disease without esophagitis

== ENCOUNTER 2019-11-12 10:53 | Emergency (ER) | payer MEDICAID ==
[~2019-11-12] VITALS: Ht 176.5 cm; Wt 75.0 kg
[~2019-11-12 10:53] MED LIST changes: +OMEPRAZOLE40 MG PO; +ZOFRAN ODT4 MG/UDTAB PO
[2019-11-12 10:58] VITALS: Ht 176.5 cm; Wt 75.0 kg
[2019-11-12 11:32] LABS: BASOPHILS 0.3 % (0-2); EOSINOPHILS 0.3 % (0-7); HEMATOCRIT 44.3 % (42.0-54.0); HEMOGLOBIN 15.6 g/dL (13.5-17.5); IMMATURE GRANULOCYTES 0.3 % (0-5); LYMPHOCYTES 31.2 % (15-50); MCH 31.6 pg (26.0-34.0); MCHC 35.2 g/dL (31.0-37.0); MCV 89.7 fL (80.0-100.0); MEAN PLATELET VOLUME 9.4 fL (7.4-10.4); MONOCYTES 8.1 % (2-11); NEUTROPHILS 59.8 % (40-80); PLATELET COUNT 172 10x3/uL (130-400); RBC 4.94 10x6/uL (4.20-6.10); RDW 13.7 % (11.5-14.5); WBC 7.7 10x3/uL (4.8-10.8)
[2019-11-12 11:36] LABS: ALBUMIN 4.3 g/dL (3.4-5.0); BILIRUBIN - TOTAL 0.71 mg/dL (0.2-1.3); CALCIUM 9.3 mg/dL (8.5-10.1); CREATININE - SERUM 1.5 mg/dL (0.6-1.3)
[2019-11-12 11:54] LABS: PROTEIN - SERUM 8.2 g/dL (6.4-8.2)
[2019-11-12 13:28] LABS: BILIRUBIN NEGATIVE (NEGATIVE); GLUCOSE NEGATIVE (NEGATIVE); KETONE SMALL mg/dL (NEGATIVE); NITRITE NEGATIVE (NEGATIVE); UROBILINOGEN NORMAL (NORMAL)
[2019-11-12 13:30] LABS: BACTERIA FEW /hpf (NEGATIVE); RED CELLS - URINE 0-5 /hpf (0-5); WHITE CELLS - URINE 0-5 /hpf (NEGATIVE)
[2019-11-12] MEDS ORDERED: REGLAN10 MG PO (15:29)
[2019-11-12] MEDS ORDERED: ZOFRAN ODT4 MG/UDTAB PO (15:29)
[2019-11-12 15:52] VITALS: BP 146/74
== END 2019-11-12 15:52 | disposition home or self-care (01) ==
LOC: D.ER 10:53
PROVIDERS: Family Medicine
DX: K31.84 Gastroparesis (principal); E86.0 Dehydration; E87.6 Hypokalemia; E87.1 Hypo-osmolality and hyponatremia; R11.10 Vomiting, unspecified; R73.9 Hyperglycemia, unspecified; K21.9 Gastro-esophageal reflux disease without esophagitis; R10.9 Unspecified abdominal pain

== ENCOUNTER 2020-09-23 10:25 | Emergency (ER) | payer MEDICAID ==
[~2020-09-23] VITALS: Ht 176.5 cm; Wt 54.5 kg
[~2020-09-23 10:25] MED LIST changes: +REGLAN10 MG PO
[2020-09-23 10:45] VITALS: BP 126/84; Ht 176.5 cm; Wt 54.5 kg
[2020-09-23 11:06] LABS: EOSINOPHILS 0.8 % (0-7); HEMATOCRIT 45.3 % (42.0-54.0); HEMOGLOBIN 15.6 g/dL (13.5-17.5); LYMPHOCYTES 41.1 % (15-50); MCHC 34.5 g/dL (31.0-37.0); MONOCYTES 8.1 % (2-11); PLATELET COUNT 153 10x3/uL (130-400); RBC 5.03 10x6/uL (4.20-6.10); RDW 14.5 % (11.5-14.5); WBC 6.5 10x3/uL (4.8-10.8)
[2020-09-23 11:24] LABS: ANION GAP 12.4 mmol/L (8-16); CALCIUM 9.6 mg/dL (8.5-10.1); CARBON DIOXIDE 26.9 mmol/L (21.0-32.0); CREATININE - SERUM 1.3 mg/dL (0.6-1.3); POTASSIUM - SERUM 3.3 mmol/L (3.5-5.1)
[2020-09-23 11:28] LABS: ALBUMIN 4.3 g/dL (3.4-5.0); BILIRUBIN - TOTAL 0.89 mg/dL (0.2-1.3); MAGNESIUM - SERUM 2.1 mg/dL (1.8-2.4); PROTEIN - SERUM 8.2 g/dL (6.4-8.2)
[2020-09-23] MEDS ORDERED: REGLAN10 MG PO (11:37)
[2020-09-23 11:54] LABS: BILIRUBIN NEGATIVE (NEGATIVE); KETONE SMALL mg/dL (NEGATIVE); NITRITE NEGATIVE (NEGATIVE); UROBILINOGEN NORMAL mg/dL (< 2)
[2020-09-23 12:19] LABS: UDS - AMPHET NEGATIVE QUAL (NEGATIVE); UDS - BARB NEGATIVE QUAL (NEGATIVE); UDS - BENZO NEGATIVE QUAL (NEGATIVE); UDS - COCAINE NEGATIVE QUAL (NEGATIVE); UDS - OPIATE NEGATIVE QUAL (NEGATIVE); UDS - PCP NEGATIVE QUAL (NEGATIVE); UDS - THC POSITIVE QUAL (NEGATIVE)
== END 2020-09-23 12:05 | disposition home or self-care (01) ==
LOC: D.ER 10:25
PROVIDERS: Family Medicine
DX: K31.84 Gastroparesis (principal); R10.30 Lower abdominal pain, unspecified; E87.6 Hypokalemia; K21.9 Gastro-esophageal reflux disease without esophagitis